=== PATIENT | female | born 2000 | race Caucasian/White ===

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

== ENCOUNTER 2023-03-08 19:49 | Emergency (ER) | payer BC, SELFPAY ==
[2023-03-08 19:57] VITALS: BP 134/88; PULSE 109; RESP 16; TEMP 36.6; O2SAT 98
--- NOTE | 2023-03-08 20:09 | W.ED.GENAD ---
HPI General Stated Complaint: RespSymp CASSIA: 4 Date/Time Provider Initiated Documentation: 03/08/23 19:57. HPI Narrative: 22 year-old female presents to ED today by POV/ambulating with her mother with a chief complaint of mild shortness of breath in the setting of chronic mild asthma, mild cough with onset yesterday. Quality described as generalized cough, no radiation to severe wheezing, respiratory distress, nausea/vomiting, body aches, profound lethargy. Severity is described as mild. Palliating factors include nothing specific- left her inhaler back at [facility] in [place], [place]- requesting inhaler today. Provoking factors include nothing specific. Events leading up to the incident/Associated Symptoms: Patient was at the [facility], which had an outbreak of Legionnaire's Disease. Patient not anticoagulated. Related Data Home Medications Medication Instructions Recorded Confirmed etonogestrel 68 mg subdermal 1 implant subdermal ONCE 05/06/19 03/08/23 implant (Nexplanon) epinephrine 0.3 mg/0.3 mL 0.3 mg (0.3 mL) IM ONCE ##1 02/04/20 03/08/23 injection, auto-injector (EpiPen 2-Mark) rizatriptan 5 mg tablet 5 mg PO ONCE #12 tabs 02/04/20 03/08/23 albuterol sulfate 90 mcg/actuation 2 puff inhalation Q4H PRN ##1 10/04/21 03/08/23 aerosol inhaler (ProAir HFA) cetirizine 10 mg capsule (Zyrtec) 10 mg PO DAILY #90 tab-caps 02/25/22 03/08/23 omeprazole 20 mg capsule,delayed 20 mg PO DAILY #30 caps 02/25/22 03/08/23 release promethazine 12.5 mg rectal 12.5 mg IN Q12H PRN vomiting #12 ea 09/10/22 03/08/23 suppository ondansetron 8 mg disintegrating 8 mg PO Q8H PRN nausea and 01/02/23 03/08/23 tablet vomiting #10 tabs promethazine 12.5 mg tablet 12.5 mg PO Q6H PRN nausea and 01/09/23 03/08/23 vomiting #30 tabs alprazolam 0.5 mg tablet (Xanax) See Rx Instructions .Route 02/09/23 03/08/23 .COMPLEX #10 tabs fluoxetine 20 mg capsule (Prozac) 20 mg PO DAILY #30 caps 03/07/23 03/08/23 fluoxetine 40 mg capsule (Prozac) 40 mg PO DAILY #30 caps 03/07/23 03/08/23 norgestimate 0.25 mg-ethinyl 1 tab PO DAILY #84 tabs 03/08/23 03/08/23 estradiol 35 mcg tablet (Sprintec (28)) Previous Rx's Medication Instructions Recorded epinephrine 0.3 mg/0.3 mL 0.3 mg (0.3 mL) IM ONCE ##1 02/04/20 injection, auto-injector (EpiPen 2-Mark) rizatriptan 5 mg tablet 5 mg PO ONCE #12 tabs 02/04/20 albuterol sulfate 90 mcg/actuation 2 puff inhalation Q4H PRN ##1 10/04/21 aerosol inhaler (ProAir HFA) cetirizine 10 mg capsule (Zyrtec) 10 mg PO DAILY #90 tab-caps 02/25/22 omeprazole 20 mg capsule,delayed 20 mg PO DAILY #30 caps 02/25/22 release promethazine 12.5 mg rectal 12.5 mg IN Q12H PRN vomiting #12 ea 09/10/22 suppository ondansetron 8 mg disintegrating 8 mg PO Q8H PRN nausea and 01/02/23 tablet vomiting #10 tabs promethazine 12.5 mg tablet 12.5 mg PO Q6H PRN nausea and 01/09/23 vomiting #30 tabs alprazolam 0.5 mg tablet (Xanax) See Rx Instructions .Route 02/09/23 .COMPLEX #10 tabs fluoxetine 20 mg capsule (Prozac) 20 mg PO DAILY #30 caps 03/07/23 fluoxetine 40 mg capsule (Prozac) 40 mg PO DAILY #30 caps 03/07/23 norgestimate 0.25 mg-ethinyl 1 tab PO DAILY #84 tabs 03/08/23 estradiol 35 mcg tablet (Sprintec (28)) Allergies Allergy/AdvReac Type Severity Reaction Status Date / Time oxycodone Allergy Intermediate Hives Verified 03/08/23 19:54 Sulfa (Sulfonamide Allergy Unknown Family Verified 03/08/23 19:54 Antibiotics) History Game Meat Allergy Severe Anaphylaxsi Uncoded 03/08/23 19:54 s Review of Systems All systems reviewed & are unremarkable except as noted in HPI and below PFSH All Active Problems (Updated 03/08/23 @ 21:17 by CARLOS Mora) COVID-19 (Acute) Cough (Acute) Contraceptive management (Acute) Encounter for Nexplanon removal (Acute) OCD (obsessive compulsive disorder) (Chronic) Suspected; compulsion to finish and complete tasks, food, activity etc Panic attacks (Chronic) Cyclical vomiting (Chronic) Nexplanon in place (Acute 10/13/21) Substance use disorder (Acute) Nausea (Acute) Abdominal pain (Acute) Eating disorder (Acute) Anxiety (Chronic) Medical History Myopia of both eyes contacts/ glasses age 13 Infectious mononucleosis 05/23 Abnormal uterine bleeding (AUB) after 2nd yr of Nexplanon use. Migraine (03/08/16) Intermittent asthma (06/29/15) exercise and dog exposures as triggers Allergic rhinitis (09/12/16) dog dander and maple tree pollen Acne vulgaris (06/29/15) Surgical History H/O rhinoplasty Performed 08/14/19 at [facility] per pt Family History Other No problems noted. Mother Acute idiopathic thrombocytopenic purpura Hyperlipidemia Other Marfan's syndrome Social History Smoking/Tobacco Use Status: Never Smoking risk assessment performed?: Yes Alcohol Intake: former Counseling given: Yes Drug use: Daily Substance use type: marijuana Counseling given: Yes Details: Working with new therapist to decrease anxiety and use of THC Housing: house Communication Needs: Corrective Lenses Education Level: college Details: [employer] Fall 2022 Do you need help understanding health information?: Rarely Pets and animals: Yes Pets and animals: dog(s) Sexually active: Yes Do you think of yourself as: straight/heterosexual Current gender identity: female What is your relationship status?: never Panel score (0-1 are the most socially isolated patients): 0 What type of physical activity do you participate in: regular exercise Seatbelt use: always Helmet use: Yes Helmet use: always Working smoke detector in home: Yes Fire extinguisher in home: Yes Carbon monox detector in home: Yes Firearms in home: No Do you feel safe at home: Yes Do you feel safe in your relationship?: Yes Female Reproductive History Menstrual control method: implanted (Switched from OCPs secondary to migraine headaches) History History 0 Para Hx # Term Pregnancies Multiple births Hx # Pregnancies Ectopic pregnancies AB induced Hx Number of Living Children AB spontaneous Exam Narrative Exam Narrative: GENERAL APPEARANCE: Well-nourished, non-toxic, awake and alert, atraumatic, no acute distress. SKIN: Warm, pink, dry, intact, without rashes/lesions/ulcerations. HEAD: Normocephalic, atraumatic, normal hair distribution for gender/age. EYES: Pupils PERRLA, EOMs intact without nystagmus, normal conjunctiva, no exudates on lids/lashes. ENT: Nares patent, no circumoral cyanosis, no facial swelling NECK: Supple, trachea midline, painless cervical ROM. LUNGS/CHEST: Lungs CTA bilaterally- no wheezing diffusley, non-labored respirations, normal A/P diameter, symmetrical expansion, no chest wall deformity HEART (CV/PV): Regular rate and rhythm without murmur, no peripheral edema, no JVD. ABDOMEN: Soft, non-distended, no guarding. MSK: Normal ROM, no swelling/deformity to bilateral UEs or LEs, moving all extremities without weakness, no cyanosis, spine midline without tenderness, normal curvature. NEURO: Mental Status AAOx4 - alert to person, place, time, events No facial droop, no forehead involvement. Motor: No focal weakness - strength 5/5 in bilateral UEs and LEs, proximal and distal, symmetric. Sensory: sensation intact to light touch globally. Gait normal: patient ambulated without ataxia into ED room. PSYCH: euthymic, cooperative, pleasant, appropriate speech Course Vital Signs Vital signs: Vital Signs Temperature 36.6 C 03/08/23 19:57 Pulse 109 H 03/08/23 19:57 Respiratory Rate 16 03/08/23 19:57 Blood Pressure 134/88 03/08/23 19:57 Pulse Oximetry 98 03/08/23 19:57 Temperature 36.6 C 03/08/23 19:57 Temperature Source Temporal Artery Scan 03/08/23 19:57 Pulse 109 H 03/08/23 19:57 Respiratory Rate 16 03/08/23 19:57 Respiratory Effort Normal, Non-Labored 03/08/23 20:07 Blood Pressure 134/88 03/08/23 19:57 Blood Pressure Position Sitting 03/08/23 19:57 Pulse Oximetry 98 03/08/23 19:57 Oxygen Delivery Method Room Air 03/08/23 19:57 Oxygen Flow Rate 0 03/08/23 19:57 Pain Level 0 03/08/23 19:57 Medical Decision Making This dictation utilizes [id number] dictation software and may contain unedited grammatical errors. 22 y/o F presents to ED today with a chief complaint of mild cough, mild shortness of breath in the setting of chronic asthma, no other major symptoms of acute viral illness, denies sore throat, denies body aches, denies fevers. Patient left her inhaler back at [facility] in [place], [place]. Patients' medical history: asthma, otherwise healthy. Family and social history: noncontributory. Pertinent exam findings / vital signs include lungs CTA- no wheezing, no respiratory distress, non-toxic presentation. Differential / pathologies of concern include viral syndrome, asthma. Diagnostic studies of: -Covid/Flu/RSV PCR - dischaged with results pending. -Covid-19 positive. Interventions of: -Provided inahler & spacer to-go. ED Course/Assessment/Plan: 22-year-old female presents with mild cough and mild shortness of breath, requesting inhaler which was happily provided, no signs of respiratory distress or toxic illness, counseled on taking regular doses of Tylenol and ibuprofen, advised that their COVID/flu/RSV PCR swab would be available on her portal as soon as results are posted likely in about 1 to 2 hours, advise strict return criteria for any increasing respiratory distress. Findings not consistent with respiratory failure, wheezing. Disposition of Cough, Covid-19. Patient verbalized understanding of the plan and return to ED criteria and engaged in shared decision making. Medical Records Medical records reviewed: Yes I reviewed the patient's medical records. Lab Data Lab results reviewed: Yes I reviewed the patient's lab results. Labs: Laboratory Tests Range/Units 03/08/23 20:28 COVID-19 Source Nasopharynx SARS-CoV-2 (PCR) (Negative) Positive A Influenza Type A (PCR) (Negative) Negative Influenza Type B (PCR) (Negative) Negative RSV (PCR) (Negative) Negative Quality:SDOH Health Related Social Needs: No Data to Display Discharge Plan Disposition Patient Disposition: Home Condition: Stable Discharge Details Clinical Impression: Cough, COVID-19 Primary Care Provider: Regina Strong ED Provider: Franki Downs Home Meds and New Rx's Prescriptions: Continued albuterol sulfate [ProAir HFA] 90 mcg/actuation HFA aerosol inhaler 2 puff Inhalation Q4H PRN Qty: 1 3RF Rx Instructions: 2 puffs with spacer every 4hr as needed for cough/wheeze norgestimate-ethinyl estradiol [Sprintec (28)] 0.25-35 mg-mcg tablet 1 tab PO DAILY Qty: 84 3RF Nexplanon 68 mg implant 1 implant SBD ONCE promethazine 12.5 mg tablet 12.5 mg PO Q6H PRN (Reason: nausea and vomiting) Qty: 30 0RF epinephrine [EpiPen 2-Mark] 0.3 mg/0.3 mL auto-injector 0.3 mg IM ONCE Qty: 1 1RF Rx Instructions: inject into mid upper thigh for work of breathing associated allergic reaction rizatriptan 5 mg tablet 5 mg PO ONCE Qty: 12 0RF Rx Instructions: TAKE ONE TAB AT ONSET OF HEADACHE, MAY REPEAT ONCE AFTER 2 HOURS. MAX 3 TABS IN 24 HOURS Zyrtec 10 mg capsule 10 mg PO DAILY Qty: 90 4RF omeprazole 20 mg capsule,delayed release(DR/EC) 20 mg PO DAILY Qty: 30 3RF promethazine 12.5 mg suppository 12.5 mg IN Q12H PRN (Reason: vomiting) Qty: 12 0RF ondansetron 8 mg tablet,disintegrating 8 mg PO Q8H PRN (Reason: nausea and vomiting) Qty: 10 0RF alprazolam [Xanax] 0.5 mg tablet See Rx Instructions .ROUTE .COMPLEX MDD 1 mg Qty: 10 0RF Rx Instructions: Take 1 tab by mouth as need for acute severe anxiety. May repeat dose in 2 hours if needed after the first dose. Max daily dose 1 mg (two tabs). fluoxetine [Prozac] 20 mg capsule 20 mg PO DAILY Qty: 30 1RF Rx Instructions: Take Prozac 20 mg cap with Prozac 40 mg cap once daily by mouth for total dose of Prozac 60 mg fluoxetine [Prozac] 40 mg capsule 40 mg PO DAILY Qty: 30 1RF Rx Instructions: Take Prozac 20 mg cap with Prozac 40 mg cap once daily by mouth for total dose of Prozac 60 mg Discharge Instructions Instructions: Albuterol (By breathing), Acute Cough (ED) Additional Instructions: You were seen in the emergency department for your mild shortness of breath, your lungs are clear to auscultation I do not think a chest x-ray is necessary at this time you have exercise-induced asthma and a mild cough, we performed a COVID/flu/RSV swab which should result on your patient portal as soon as the results are in. If you have not heard tonight you may call the ER for results tomorrow. We have provided you with an albuterol inhaler to go as you have left your inhaler at your [facility]. Please use this for shortness of breath as you would normally for your asthma. Please take regular dosings of Tylenol and ibuprofen for any viral syndrome. Please return for any severe increase in respiratory distress or profound lethargy. Referrals: Regina Strong MD [Primary Care Provider] -
[2023-03-08] MEDS: Albuterol HFA 8 GM 60 PUFF INH IH (20:24)
[2023-03-08 21:10] LABS: Influenza A PCR Negative (Negative); Influenza B PCR Negative (Negative); RSV PCR Negative (Negative)
[2023-03-08 21:16] LABS: COVID-19 PCR Positive (Negative); Source Nasopharynx
[2023-03-08 21:36] VITALS: BP 134/88; PULSE 109; RESP 16; TEMP 36.6; O2SAT 98
== END 2023-03-08 20:42 | disposition home or self-care (01) ==
PROVIDERS: Emergency Provider Physician Assistant
DX: R05.9 Cough, unspecified (principal); U07.1 COVID-19; J45.909 Unspecified asthma, uncomplicated
CPT/HCPCS: 87637; 99283

== ENCOUNTER 2023-07-11 13:58 | Outpatient (REF) | payer BC, SELFPAY ==
[2023-07-12 14:02] LABS: Chlamydia Result Negative (Negative); GC Result Negative (Negative)
== END 2023-07-11 13:59 | disposition home or self-care (01) ==
LOC: NCHCN 13:58
PROVIDERS: Visit Provider Obstetrics & Gynecology
DX: Z11.3 Encounter for screening for infections with a predominantly sexual mode of transmission (principal)
CPT/HCPCS: 87491; 87591